=== PATIENT | female | born 1950 | race Hispanic/Latino ===

== ENCOUNTER → 2018-08-19 | Day surgery (SDC) | payer MEDICARE ==
[2018-08-16 14:15] LABS: BASOPHILS % 0.7 % (0.0-1.0); EOSINOPHILS # (AUTO) 0.1 (0.0-0.4); EOSINOPHILS % 1.8 % (0.0-6.0); HEMATOCRIT 33.6 % (34.2-44.1); HEMOGLOBIN 11.1 g/dL (12.0-16.0); LYMPHOCYTES # (AUTO) 1.5 (1.0-3.2); LYMPHOCYTES % 28.2 % (18.0-39.1); MEAN CORPUSCULAR HEMOGLOBIN 28.8 pg (28-32); MONOCYTES # (AUTO) 0.4 (0.2-0.8); MONOCYTES % 8.1 % (4.4-11.3); NEUTROPHILS # (AUTO) 3.3 (2.1-6.9); PLATELET COUNT 279 x10e3/uL (140-360); RED BLOOD COUNT 3.86 x10e6/uL (3.6-5.1); RED CELL DISTRIBUTION WIDTH 13.3 % (11.7-14.4)
[~2018-08-19] MED LIST: FENOFIBRATE145 MG PO; FENTANYL CITRATE/PF 100MCG/2 ML INJ ONE; HYOSCYAMINE SULFATE 0.5 MG/ML INJ ONE; LOSARTAN POTASS25 MG PO; METFORMIN HCL500 MG PO; MIDAZOLAM HCL 2 MG/2 ML VIAL ONE; OMEPRAZOLE20 M1 PO; PROPOFOL IV EMULSION 10 MG/ML 50 ML VIAL ONE; SIMETHICONE 40 MG/0.6 ML BTL ONE
--- OUTSIDE RECORDS SUMMARY | 2018-08-19 08:03 | XMS REPORT | Clinical Summary ---
Author Author SALVAT[facility] [place], [place] Address Unknown Phone Unavailable Care Team Providers Care Laser Operator Name Role Phone Eva Eng Keely PCP Allergies Comments Active Allergy Reactions Severity Noted Date cough Skyler Inhibitors Other (See 06/04/2017 Comments) Facial swelling and itching. Aspirin 06/04/2017 Facial swelling and itching. Ibuprofen 06/04/2017 Medications End Date Status Medication Sig Dispensed Refills Start Date 06/12/2018 Discontinued losartan (COZAAR) 100 MG Take 125 mg 0 tablet by mouth daily. Active Problems Not on file Social History Date Tobacco Use Types Packs/Day Years Used Never Assessed Sex Assigned at Date Recorded Not on file Industry Job Start Date Occupation Not on file Not on file Not on file Travel End Travel History Travel Start No recent travel history available. Last Filed Vital Signs Not on file Plan of Treatment Not on file Results Not on fileafter 08/18/2017 Insurance Payer Benefit Subscriber ID Type Phone Address Plan / Group [employer] xxxxxxxxx MEDICARE MGD CARE MEDICARE HMO
--- OUTSIDE RECORDS SUMMARY | 2018-08-19 08:03 | XMS REPORT ---
Author Author Admin, [place] Organization [facility] Address Unknown Phone Unavailable Allergies, Adverse Reactions, Alerts Allergy Name Reaction Description Start Date Severity Status Provider No Known Allergies Adeline Hernandez MD Conditions or Problems Problem Name Problem Code Onset Date Status Entry Date Provider Comment Standard Description Annotate Elevated creatinine 790.4 Active Adeline Hernandez MD Nonspecific elevation of levels of transaminase or lactic acid dehydrogenase [LDH] Abdominal bloating 787.3 Active Adeline Hernandez MD Flatulence, eructation, and gas pain Screening for colon cancer V76.51 Active Adeline Hernandez MD Screening for malignant neoplasms of colon 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 Eva Eng MD Varices of other sites Diabetes mellitus, type II 250.00 Active Eva Eng MD Diabetes mellitus without mention of complication, type II or unspecified type, not stated as uncontrolled Hyperlipidemia 272.4 Active Eva Eng MD Other and unspecified hyperlipidemia Syphilis 097.9 Active Eva Eng MD Syphilis, unspecified Vitamin D deficiency 268.9 Active Eva Eng MD Unspecified vitamin D deficiency BMI 31.0-31.9 Active Eva Eng MD Body Mass Index 31.0-31.9, adult Bone pain 733.90 Active Eva Eng MD Disorder of bone and cartilage, unspecified Hypertension, benign essential 401.1 Active Eva Eng MD Benign essential hypertension Obesity Active Eva Egn MD Obesity, unspecified Osteoarthritis of knees 715.96 Active Eva Eng MD Osteoarthrosis, unspecified whether generalized or localized, involving lower leg Prediabetes 790.29 Active Eva Eng MD Other abnormal glucose Screening for anemia V78.1 Active Eva Eng MD Screening for other and unspecified deficiency anemia Screening for lipid disorder V77.91 Active Eva Eng MD Screening for lipoid disorders Screening for metabolic disorder V77.99 Active Eva Eng MD Screening for other and unspecified endocrine, nutritional, metabolic, and immunity disorders Screening for viral disease NOS V73.99 Active Eva Eng MD Screening examination for unspecified viral disease Screening, cervical cancer V76.2 Active Esha Gonzalez RN Screening for malignant neoplasms of the cervix UTI ICD-599.0 Inactive Adeline Hernandez MD Vaginal itching ICD-698.1 Inactive Adeline Hernandez MD Screening, STD V74.5 Inactive Eva Eng MD Screening examination for venereal disease Screening, STD ICD-V74.5 Inactive Eva Eng MD UTI 599.0 Resolved Adeline Hernandez MD Urinary tract infection, site not specified Vaginal itching 698.1 Resolved Adeline Hernandez MD Pruritus of genital organs Medication List Medication Instructions Start Date Stop Date Generic Name NDC Status Provider Patient Instruction FLUCONAZOLE 150 MG ORAL TABLET Take 1 tablet once. If symptoms persist > 72 hours, take second tablet. FLUCONAZOLE 90623491010 Active Adeline Hernandez MD Active ATORVASTATIN CALCIUM 10 MG ORAL TABLET Take 1 tablet by mouth at bedtime ATORVASTATIN CALCIUM 82901950346 Active Adeline Hernandez MD Active ERGOCALCIFEROL 68677 UNIT ORAL CAPSULE Take 1 capsule weekly ERGOCALCIFEROL 79748481105 Active Eva Eng MD Active LOSARTAN POTASSIUM-HCTZ 50-12.5 MG ORAL TABLET Take 1 tablet by mouth daily LOSARTAN POTASSIUM-HCTZ 52676025990 Active Adeline Hernandez MD Active TYLENOL EXTRA STRENGTH 500 MG ORAL TABLET 1 by mouth every 6-8 hours ACETAMINOPHEN 15445271491 Active Eva Eng MD Active Immunizations Vaccine Administration Date Value Standard Description influenza immunization (Flu Vax) has been administered given influenza virus vaccine, unspecified formulation Vital Signs Date Name Value Unit Range Description blood pressure, diastolic 78 mm[Hg] BP soto blood pressure, systolic 127 mm[Hg] BP sys height E&M 61 [in_us] Bdy height pulse rate E&M 76 /min Heart rate respiratory rate E&M 15 /min Resp rate temperature E&M 98.2 [degF] Body temperature weight E&M 157.50 [lb_av] Weight Measured blood pressure, diastolic 73 mm[Hg] BP soto blood pressure, systolic 125 mm[Hg] BP sys height E&M 61 [in_us] Bdy height pulse rate E&M 71 /min Heart rate temperature E&M 98.0 [degF] Body temperature weight E&M 161.50 [lb_av] Weight Measured blood pressure, diastolic 70 mm[Hg] BP soto blood pressure, systolic 117 mm[Hg] BP sys height E&M 61 [in_us] Bdy height pulse rate E&M 72 /min Heart rate temperature E&M 98.4 [degF] Body temperature weight E&M 166 [lb_av] Weight Measured blood pressure, diastolic 76 mm[Hg] BP soto blood pressure, systolic 134 mm[Hg] BP sys height E&M 61 [in_us] Bdy height pulse rate E&M 69 /min Heart rate respiratory rate E&M 15 /min Resp rate temperature E&M 98.7 [degF] Body temperature weight E&M 164.50 [lb_av] Weight Measured blood pressure, diastolic 68 mm[Hg] BP soto blood pressure, systolic 140 mm[Hg] BP sys height E&M 61 [in_us] Bdy height pulse rate E&M 78 /min Heart rate temperature E&M 99.0 [degF] Body temperature weight E&M 167 [lb_av] Weight Measured Diagnostic Results Date Name Value Unit Range Description Lab Report: CBC With Differential/Platelet, Comp. Metabolic Panel (14), ... - Serology hepatitis C antibody, serum 0.1 0.0-0.9 Lab Report: Urinalysis, Routine, Microscopic Examination, Basic Metaboli ... - Urinalysis pH, urine, semiquantitative 5.5 5.0-7.5 epithelial cells, urine 0-10 /[LPF] 0 - 10 Lab Report: CBC With Differential/Platelet, Comp. Metabolic Panel (14), ... - Hematology lymphocyte count, blood, automated 1.8 X10E3/UL 10*3/mm3 0.7-3.1 Lab Report: Urinalysis, Routine, Microscopic Examination, Basic Metaboli ... - Urinalysis bilirubin, urine Negative Negative Lab Report: Urinalysis, Routine, Microscopic Examination, Basic Metaboli ... - Chemistry urea nitrogen, blood 20 mg/dL 8-27 creatinine, serum 0.88 mg/dL 0.57-1.00 Lab Report: CBC With Differential/Platelet, Comp. Metabolic Panel (14), ... - Hematology mean corpuscular volume, RBC 85 fL 79-97 Lab Report: Urinalysis, Routine, Microscopic Examination, Basic Metaboli ... - Chemistry chloride, serum 99 mmol/L 96-106 Lab Report: CBC With Differential/Platelet, Comp. Metabolic Panel (14), ... - Chemistry lipase, serum 39 U/L [iU]/L 14-72 triglyceride, serum, fasting 226 mg/dL 0-149 Lab Report: CBC With Differential/Platelet, Comp. Metabolic Panel (14), ... - Hematology erythrocyte (RBC) count 4.06 X10E6/UL 10*6/mm3 3.77-5.28 Lab Report: Urinalysis, Routine, Microscopic Examination, Basic Metaboli ... - Chemistry Estimated Glomerular Filtration Rate (calc) 69 mL/min/1.73m2 >59 Lab Report: CBC With Differential/Platelet, Comp. Metabolic Panel (14), ... - Hematology platelet count 264 X10E3/UL 10*3/mm3 150-379 Lab Report: Urinalysis, Routine, Microscopic Examination, Basic Metaboli ... - Urinalysis appearance, urine Clear Clear Lab Report: CBC With Differential/Platelet, Comp. Metabolic Panel (14), ... - Hematology red blood cell distribution width 14.2 % 12.3-15.4 Lab Report: CBC With Differential/Platelet, Comp. Metabolic Panel (14), ... - Lab Treponema pallidum antibodies, by particle agglutination Equivocal Negative Lab Report: CBC With Differential/Platelet, Comp. Metabolic Panel (14), ... - Chemistry protein, total, serum 7.2 g/dL 6.0-8.5 HDL cholesterol, serum 51 mg/dL >39 Lab Report: Urinalysis, Routine, Microscopic Examination, Basic Metaboli ... - Urinalysis mucus on urinalysis Present Not Estab. Lab Report: Urinalysis, Routine, Microscopic Examination, Basic Metaboli ... - Chemistry specific gravity, body fluid 1.009 1.005-1.030 Lab Report: CBC With Differential/Platelet, Comp. Metabolic Panel (14), ... - Hematology eosinophils as percent of blood leukocytes 1 % Not Estab. Lab Report: Urinalysis, Routine, Microscopic Examination, Basic Metaboli ... - Urinalysis glucose, urine, semiquantitative Negative Negative Lab Report: CBC With Differential/Platelet, Comp. Metabolic Panel (14), ... - Chemistry albumin/globulin ratio, serum 1.6 1.2-2.2 Absolute Neutrophils 2.8 X10E3/UL 10*3/uL 1.4-7.0 Lab Report: CBC With Differential/Platelet, Comp. Metabolic Panel (14), ... - Hematology basophil count, absolute 0.1 x10E3/uL 0.0-0.2 Lab Report: CBC With Differential/Platelet, Comp. Metabolic Panel (14), ... - Chemistry hepatitis B surface antigen Negative Negative alanine aminotransferase (SGPT), serum 14 U/L 0-32 LDL cholesterol, serum 117 mg/dL 0-99 Lab Report: CBC With Differential/Platelet, Comp. Metabolic Panel (14), ... - Hematology monocytes as percent of blood leukocytes 8 % Not Estab. Office Visit: BP low--lowered dose of BP meds - Urinalysis nitrite, urine, semiquantitative negative Lab Report: Basic Metabolic Panel (8), Hemoglobin A1c, Urine Culture, Ro ... - Urinalysis urine culture No growth Lab Report: Urinalysis, Routine, Microscopic Examination, Basic Metaboli ... - Urinalysis casts, urine Present /[LPF] None seen Lab Report: CBC With Differential/Platelet, Comp. Metabolic Panel (14), ... - Chemistry cholesterol, serum 213 mg/dL 100-199 Lab Report: Urinalysis, Routine, Microscopic Examination, Basic Metaboli ... - Basic Occult Blood, urine Negative Negative Lab Report: CBC With Differential/Platelet, Comp. Metabolic Panel (14), ... - Hematology mean corpuscular hemoglobin concentration, RBC 33.4 G/DL % 31.5-35.7 hemoglobin, blood 11.5 g/dL 11.1-15.9 Lab Report: Urinalysis, Routine, Microscopic Examination, Basic Metaboli ... - Urinalysis leukocyte esterase, urine, by dipstick Trace Negative urinalysis, microscopic examination See below: Lab Report: CBC With Differential/Platelet, Comp. Metabolic Panel (14), ... - Hematology leukocyte count, blood 5.1 X10E3/UL 10*3/mm3 3.4-10.8 Lab Report: Urinalysis, Routine, Microscopic Examination, Basic Metaboli ... - Urinalysis protein, urine, semiquantitative (dipstick) Negative Negative/Trace Lab Report: CBC With Differential/Platelet, Comp. Metabolic Panel (14), ... - Hematology hematocrit, blood 34.4 % 34.0-46.6 Lab Report: CBC With Differential/Platelet, Comp. Metabolic Panel (14), ... - Chemistry globulin, serum 2.8 1.5-4.5 Lab Report: Urinalysis, Routine, Microscopic Examination, Basic Metaboli ... - Urinalysis bacteria, urine microscopy None seen None seen/Few Lab Report: CBC With Differential/Platelet, Comp. Metabolic Panel (14), ... - Chemistry vitamin D 25-hydroxy, serum 18.1 ng/mL 30.0-100.0 albumin, serum 4.4 g/dL 3.6-4.8 very low density lipoproteins 45 mg/dL 5-40 Lab Report: Urinalysis, Routine, Microscopic Examination, Basic Metaboli ... - Urinalysis urobilinogen, urine, semiquantitative (dipstick) 0.2 0.2-1.0 Lab Report: CBC With Differential/Platelet, Comp. Metabolic Panel (14), ... - Hematology basophils as percent of blood leukocytes 1 % Not Estab. Lab Report: Urinalysis, Routine, Microscopic Examination, Basic Metaboli ... - Chemistry calcium, serum 8.9 mg/dL 8.7-10.3 Lab Report: CBC With Differential/Platelet, Comp. Metabolic Panel (14), ... - Hematology monocyte count, blood, automated 0.4 X10E3/UL 10*3/uL 0.1-0.9 Lab Report: Urinalysis, Routine, Microscopic Examination, Basic Metaboli ... - Chemistry urea nitrogen/creatinine ratio, serum 23 12-28 Lab Report: CBC With Differential/Platelet, Comp. Metabolic Panel (14), ... - Chemistry immature granulocytes, percentage of total cells, blood 0 % Not Estab. Lab Report: Urinalysis, Routine, Microscopic Examination, Basic Metaboli ... - Genetics/fertility eGFR if 79 mL/min/1.73m2 >59 Lab Report: Urinalysis, Routine, Microscopic Examination, Basic Metaboli ... - Urinalysis WBC urine on microscopy 0-5 /hpf {Cells}/[HPF] 0 - 5 Lab Report: CBC With Differential/Platelet, Comp. Metabolic Panel (14), ... - Hematology lymphocytes as percent of blood leukocytes 35 % Not Estab. Lab Report: Urinalysis, Routine, Microscopic Examination, Basic Metaboli ... - Chemistry RBC, Urine 0-2 /hpf /[HPF] 0 - 2 carbon dioxide, venous blood 29 mmol/L 18-29 Lab Report: CBC With Differential/Platelet, Comp. Metabolic Panel (14), ... - Serology rapid plasma reagin antibody, serum 1:1 NonRea<1:1 Lab Report: CBC With Differential/Platelet, Comp. Metabolic Panel (14), ... - Lab chlamydia DNA probe Negative Negative Lab Report: CBC With Differential/Platelet, Comp. Metabolic Panel (14), ... - Microbiology Neisseria gonorrhoeae DNA probe Negative Negative Lab Report: Urinalysis, Routine, Microscopic Examination, Basic Metaboli ... - Chemistry sodium, serum 143 mmol/L 134-144 Lab Report: Basic Metabolic Panel (8), Hemoglobin A1c, Urine Culture, Ro ... - Chemistry hemoglobin A1C, blood, as % of total hemoglobin 6.3 % 4.8-5.6 Office Visit: Annual / Family Planning Female, HTN, OA, vit D low, prediabetes - Chemistry beta HCG, urine, semiquantitative negative Lab Report: CBC With Differential/Platelet, Comp. Metabolic Panel (14), ... - Chemistry alkaline phosphatase, serum 64 U/L 39-117 Lab Report: Urinalysis, Routine, Microscopic Examination, Basic Metaboli ... - Urinalysis ketones, urine, by test strip Negative Negative Lab Report: CBC With Differential/Platelet, Comp. Metabolic Panel (14), ... - Hematology Eosinophil Absolute Count 0.1 X10E3/UL 10*3/uL 0.0-0.4 Office Visit: BP low--lowered dose of BP meds - Urinalysis specific gravity, urine 1.010 Lab Report: CBC With Differential/Platelet, Comp. Metabolic Panel (14), ... - Hematology mean corpuscular hemoglobin, RBC 28.3 pg 26.6-33.0 Lab Report: Vaginitis/Vaginosis, DNA Probe - Urinalysis trichomonas vaginalis, urine Negative Negative Lab Report: CBC With Differential/Platelet, Comp. Metabolic Panel (14), ... - Chemistry bilirubin, serum, total 0.3 mg/dL 0.0-1.2 Lab Report: CBC With Differential/Platelet, Comp. Metabolic Panel (14), ... - Hematology neutrophils as percent of blood leukocytes 55 % Not Estab. Lab Report: Urinalysis, Routine, Microscopic Examination, Basic Metaboli ... - Chemistry nitrate, urine Negative Negative Office Visit: BP low--lowered dose of BP meds - Urinalysis blood in urine (hemoglobin) by dipstick hemolyzed trace Lab Report: Urinalysis, Routine, Microscopic Examination, Basic Metaboli ... - Chemistry blood glucose, random 100 mg/dL 65-99 potassium, serum 3.6 mmol/L 3.5-5.2 Lab Report: CBC With Differential/Platelet, Comp. Metabolic Panel (14), ... - Chemistry aspartate aminotransferase (SGOT), serum 13 U/L 0-40 Lab Report: Urinalysis, Routine, Microscopic Examination, Basic Metaboli ... 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 [employer] Est Patient Exp Problem - 49094 Adeline Hernandez MD CPT-18623 [facility] 12:21:31 SUPERVISOR [employer] Est Patient Exp Problem - 09252 Adeline Hernandez MD CPT-43644 [facility] 14:12:41 SUPERVISOR [employer] Est Patient Exp Problem - 95175 Adeline Hernandez MD CPT-55291 [facility] 09:37:47 CDT Est Patient Detailed - 82409 Eva nEg MD CPT-59469 [facility] 11:05:02 CDT Est Patient Detailed - 74232 Eva Eng MD CPT-24772 [facility] 11:24:15 CDT New Patient Detailed - 38521 Eva Eng MD CPT-55476 [facility] Procedures Code Procedure Name Date Entry Date Standard Description CPT-76466 New Patient Well Exam (65 & Over) - 20699 11:24:13 CDT
--- OUTSIDE RECORDS SUMMARY | 2018-08-19 08:03 | XMS REPORT ---
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 Allergies, Adverse Reactions, Alerts This patient has no known allergies or adverse reactions. Medications This patient has no known medications. Encounters Start Date/Time End Date/Time Encounter Type Admission Type Attending [facility] Facility Care Department Encounter ID 2017-01-26 08:08:41 2017-01-26 08:08:41 Outpatient [facility] [id number] 2017-01-19 07:49:47 2017-01-19 07:49:47 Outpatient [facility] [id number] 2017-01-16 09:18:11 2017-01-16 09:18:11 Outpatient [facility] [id number] 2017-01-10 08:49:22 2017-01-10 08:49:22 Outpatient [facility] [id number] 2016-12-21 14:07:49 2016-12-21 14:07:49 Outpatient [facility] [id number] 2016-07-25 08:08:01 2016-07-25 08:08:01 Outpatient [facility] [id number] 2015-12-28 07:38:54 2015-12-28 07:38:54 Outpatient [facility] [id number] 2015-12-21 13:46:57 2015-12-21 13:46:57 Outpatient [facility] [id number] 2015-11-30 13:00:19 2015-11-30 13:00:19 Outpatient [facility] [id number] 2015-11-09 09:36:04 2015-11-09 09:36:04 Outpatient [facility] [id number] 2015-11-04 09:22:08 2015-11-04 09:22:08 Outpatient [facility] [id number] 2015-11-02 13:48:50 2015-11-02 13:48:50 Outpatient [facility] [id number] 2015-10-15 10:34:55 2015-10-15 10:34:55 Outpatient [facility] [id number] 2015-10-13 08:29:08 2015-10-13 08:29:08 Outpatient [facility] [id number] 2015-10-08 11:58:32 2015-10-08 11:58:32 Outpatient [facility] [id number] 2015-10-08 11:27:19 2015-10-08 11:27:19 Outpatient [facility] [id number] 2015-10-08 10:18:57 2015-10-08 10:18:57 Outpatient [facility] [id number] 2015-10-04 14:20:41 2015-10-04 14:20:41 Outpatient [facility] [id number] 2015-09-21 08:44:20 2015-09-21 08:44:20 Outpatient [facility] [id number] 2015-09-20 14:25:55 2015-09-20 14:25:55 Outpatient [facility] [id number] 2015-07-16 15:11:35 2015-07-16 15:11:35 Outpatient [facility] [id number] 2015-07-16 14:29:41 2015-07-16 14:29:41 Outpatient [facility] [id number] 2015-07-08 16:29:04 2015-07-08 16:29:04 Outpatient [facility] [id number] 2015-07-08 14:12:25 2015-07-08 14:12:25 Outpatient [facility] [id number] 2015-04-21 09:24:58 2015-04-21 09:24:58 Outpatient [facility] [id number] 2015-04-01 09:42:47 2015-04-01 09:42:47 Outpatient [facility] [id number] 2015-03-03 14:55:13 2015-03-03 14:55:13 Outpatient [facility] [id number] 2015-03-02 15:00:16 2015-03-02 15:00:16 Outpatient [facility] [id number] 2015-02-18 08:05:19 2015-02-18 08:05:19 Outpatient [facility] [id number] 2015-02-02 08:24:09 2015-02-02 08:24:09 Outpatient [facility] [id number] 2015-02-01 08:32:16 2015-02-01 08:32:16 Outpatient [facility] [id number] 2015-01-11 08:35:55 2015-01-11 08:35:55 Outpatient [facility] [id number] 2015-01-08 13:25:53 2015-01-08 13:25:53 Outpatient [facility] [id number]
[2018-08-19 10:35] VITALS: BP 136/68
--- NOTE | 2018-08-19 18:05 | Operative Report ---
DATE OF PROCEDURE: 08/19/2018 SURGEON: Aamir Garcia MD PROCEDURE: EGD with biopsies and colonoscopy with polypectomy. INDICATION FOR EGD: Epigastric pain, exacerbated with meals. INDICATION FOR COLONOSCOPY: Colorectal cancer screening. MEDICATION: The patient was done under MAC. Please see anesthesiologist note. PROCEDURE IN DETAIL: With the patient in left lateral decubitus position, a flexible fiberoptic Olympus gastroscope was introduced into the esophagus under direct visualization without any difficulty. There was some patchy erythema noted in the distal esophagus. The scope was then advanced with ease into the stomach. Mucosa overlying the antrum and the body revealed some diffuse erythema and [id number] edema and biopsies were obtained and sent to stain for H pylori. Pylorus was of normal contour and shape, was intubated with ease and the scope was advanced all the way to the second portion of the duodenum. The scope was then withdrawn slowly and the mucosa overlying the proximal second portion and duodenal bulb appeared to be within normal limits. The scope was then withdrawn back into the stomach and retroflexed. Mucosa overlying the fundus and cardia appeared to be within normal limits. The scope was then straightened out, it was subsequently withdrawn. The patient tolerated the procedure well. IMPRESSION: 1. Distal esophagitis. 2. Gastritis, biopsied. Biopsies sent to stain for Helicobacter pylori. PLAN: Followup histology. Initiate Protonix 40 mg one p.o. q.a.m. before meals. If pain persists despite PPI therapy, we will initiate gallbladder evaluation. The patient was then turned around. After adequate lubrication of the anal canal, a flexible fiberoptic Olympus colonoscope was inserted into the rectum with ease and advanced all the way to the cecum. One polyp was snared from the cecum. The scope was then withdrawn slowly and 1 polyp was hot biopsied and 1 polyp was snared from the ascending colon and the site was hemoclipped. One polyp was hot biopsied from the transverse colon. One polyp was snared from the descending colon. Sigmoid and rectum appeared to be within normal limits. The scope was then retroflexed into the distal rectum. Small internal hemorrhoids were noted, none of which was actively bleeding. The scope was then straightened out, it was subsequently withdrawn. The patient tolerated the procedure well. IMPRESSION: 1. Cecal polyp, snared. 2. Ascending colon polyps x2, one snared and site hemoclipped and one hot biopsied. 3. Transverse colon polyp, hot biopsied x1. 4. Descending colon polyp x1, snared. 5. Internal hemorrhoids, none actively bleeding. PLAN: Followup histology. Initiate high-fiber, low-fat diet. Initiate high-fiber supplement. The patient might benefit from a followup colonoscopy in 3 years. The patient will need a small bowel series as findings do not necessarily explain her anemia. Aamir Garcia MD [facility]/[place]ANEL /[id number] cc: Lilia Cano MD
== END | disposition home or self-care (01) ==
LOC: OR 07:58
PROVIDERS: ATTEND Internal Medicine Gastroenterology
DX: Z12.11 Encounter for screening for malignant neoplasm of colon (principal); K29.50 Unspecified chronic gastritis without bleeding; B96.81 Helicobacter pylori [H. pylori] as the cause of diseases classified elsewhere; D12.2 Benign neoplasm of ascending colon; D12.0 Benign neoplasm of cecum; D12.4 Benign neoplasm of descending colon; D12.3 Benign neoplasm of transverse colon; D64.9 Anemia, unspecified; R14.2 Eructation; R10.13 Epigastric pain; D64.89 Other specified anemias; K64.8 Other hemorrhoids; I10 Essential (primary) hypertension; E11.9 Type 2 diabetes mellitus without complications; E78.5 Hyperlipidemia, unspecified; I83.90 Asymptomatic varicose veins of unspecified lower extremity; Z01.812 Encounter for preprocedural laboratory examination; Z79.1 Long term (current) use of non-steroidal anti-inflammatories (NSAID); Z01.810 Encounter for preprocedural cardiovascular examination; K21.0 Gastro-esophageal reflux disease with esophagitis; Z79.84 Long term (current) use of oral hypoglycemic drugs
CPT/HCPCS: 36415 ×2; 43239; 45384; 45385; 82948; 85025; 93005; J1980; J2250; J2704; 45378

== ENCOUNTER → 2018-09-13 | Outpatient (CLI) | payer MEDICARE ==
[~2018-09-13] MED LIST changes: -FENTANYL CITRATE/PF 100MCG/2 ML INJ ONE; -HYOSCYAMINE SULFATE 0.5 MG/ML INJ ONE; -MIDAZOLAM HCL 2 MG/2 ML VIAL ONE; -PROPOFOL IV EMULSION 10 MG/ML 50 ML VIAL ONE; -SIMETHICONE 40 MG/0.6 ML BTL ONE
--- NOTE | 2018-09-13 12:41 | Diagnostic Imaging Report ---
FLUOROSCOPIC SMALL BOWEL SERIES MUSIC RESEARCHER(S): Marisol Mata MD Indication: Anemia. Comparison: None. Radiation Dose: Total dose: 9.4 mGy Total fluoroscopy time: 0.6 minutes Procedure: Small bowel follow through exam was performed using oral barium. Preliminary image was obtained before administration of contrast and serial overhead images were obtained after administration of oral barium. Fluoroscopy was performed and spot images were obtained. 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 No acute bony abnormality. There is a capsule overlying the ascending colon. STOMACH: Unremarkable mucosal pattern. SMALL BOWEL: Bulb and sweep are normal. Duodenal-jejunal junction is in the normal expected position. Small bowel loops are normal in caliber and distribution. There is no evidence of fistula, mucosal changes, stricture or dilation. The transit time was within normal limits. Spot image of the terminal ileum was unremarkable. COLON: Filling defects within the proximal colon likely reflect stool contents. No evidence of stricture or specific evidence of mass. IMPRESSION: Unremarkable fluoroscopic small bowel series. Signed by: Dr. Marisol Mata MD on 09/13/2018 12:38 PM
== END ==
LOC: DX 08:08
PROVIDERS: ATTEND Internal Medicine Gastroenterology
DX: D64.9 Anemia, unspecified (principal)
CPT/HCPCS: 74250

== ENCOUNTER 2021-11-23 14:28 | Emergency (ER) | payer MEDICARE ==
[~2021-11-23] VITALS: Ht 160 cm; Wt 72.6 kg
[~2021-11-23 14:28] MED LIST changes: +AMLODIPINE BESY10 MG PO; +ASPIRIN81 MG PO; +DIOVAN HCT 3201 EAC1; +FUROSEMIDE40 MG PO
[2021-11-23 14:57] LABS: BASOPHILS # (AUTO) 0.1 (0.0-0.1); EOSINOPHILS # (AUTO) 0.1 (0.0-0.4); EOSINOPHILS % 2.1 % (0.0-6.0); HEMATOCRIT 38.6 % (34.2-44.1); HEMOGLOBIN 12.2 g/dL (12.0-16.0); LYMPHOCYTES # (AUTO) 2.1 (1.0-3.2); LYMPHOCYTES % 34.4 % (18.0-39.1); MEAN CORPUSCULAR HEMOGLOBIN 28.1 pg (28-32); MEAN CORPUSCULAR HGB CONC 31.6 g/dL (31-35); MEAN CORPUSCULAR VOLUME 88.9 fL (81-99); MONOCYTES # (AUTO) 0.6 (0.2-0.8); MONOCYTES % 9.2 % (4.4-11.3); NEUTROPHILS # (AUTO) 3.3 (2.1-6.9); NEUTROPHILS % 52.5 % (38.7-80.0); PLATELET COUNT 297 x10e3/uL (140-360); RED BLOOD COUNT 4.34 x10e6/uL (3.6-5.1); RED CELL DISTRIBUTION WIDTH 13.7 % (11.7-14.4)
[2021-11-23 15:14] LABS: CLARITY,URINE SL CLOUDY (CLEAR); COLOR,URINE YELLOW (YELLOW); KETONES,URINE NEGATIVE (NEGATIVE); LEUKOCYTE ESTERASE ,URINE SMALL (NEGATIVE); NITRITE,URINE NEGATIVE (NEGATIVE); PROTEIN,URINE DIPSTICK NEGATIVE (NEGATIVE); URINE UROBILINOGEN 0.2 mg/dL (0.2 - 1)
[2021-11-23 15:15] LABS: ALBUMIN 3.6 g/dL (3.5-5.0); ALBUMIN/GLOBULIN RATIO 0.9 (0.8-2.0); ANION GAP 16.5 mmol/L (8-16); CALCIUM 9.1 mg/dL (8.4-10.2); CREATININE, SERUM 0.86 mg/dL (0.57-1.11); POTASSIUM 3.5 mmol/L (3.5-5.1)
[2021-11-23 15:16] LABS: LIPASE 29 U/L (8-78)
[2021-11-23 15:29] LABS: RBC,URINE 0-5 /HPF (0-5)
[2021-11-23 15:30] LABS: BACTERIA,URINE FEW /HPF; EPITHELIAL CELLS,URINE FEW /LPF
[2021-11-23 17:16] VITALS: BP 119/76
== END 2021-11-23 17:16 | disposition home or self-care (01) ==
LOC: ER 14:35
DX: R05.9 Cough, unspecified (principal); R53.83 Other fatigue; E11.65 Type 2 diabetes mellitus with hyperglycemia; I10 Essential (primary) hypertension; R94.31 Abnormal electrocardiogram [ECG] [EKG]
CPT/HCPCS: 36415; 71045; 80053; 81001; 82948; 83690; 83880; 84484; 85025; 93005; 99283